=== PATIENT | female | born 1965 | race Caucasian/White ===

== ENCOUNTER 2019-03-19 07:03 | Outpatient (CLI) | payer MEDICARE, MEDICAID ==
--- NOTE | 2019-03-19 08:46 | ULT ---
PELVIC ULTRASOUND: Transabdominal and endovaginal ultrasound of pelvis performed. INDICATION: Pelvic pain. FINDINGS: The patient is status post hysterectomy and right oophorectomy. The left ovary is not identified. S mall bowel gas filled the pelvis and obscured detail. No free fluid identified. IMPRESSION: Post hysterectomy and right oophorectomy. The left ovary is not identified. POS: LILLIANA
== END 2019-03-19 07:04 | disposition home or self-care (01) ==
LOC: BICULT 07:03
PROVIDERS: ATTEND Nurse Practitioner Adult Health
DX: R10.2 Pelvic and perineal pain (principal); Z90.710 Acquired absence of both cervix and uterus; Z90.721 Acquired absence of ovaries, unilateral
CPT/HCPCS: 76856

== ENCOUNTER 2019-04-16 09:55 | Outpatient (CLI) | payer MEDICARE, MEDICAID ==
--- NOTE | 2019-04-16 10:36 | MMO ---
Bilateral MAMMO Bilat Diag [facility]. CLINICAL HISTORY: Patient is 53 years old and is seen for diagnostic exam and pain in the right breast. The patient has the following family history of breast cancer: cousin female. The patient has a history of uterine cancer at age 45. The patient has a history of right Excisional Biopsy - benign. VIEWS: The views performed were: bilateral craniocaudal with tomosynthesis; bilateral mediolateral oblique with tomosynthesis; bilateral mediolateral; and bilateral exaggerated craniocaudal. FILMS COMPARED: The present examination has been compared to prior imaging studies performed at [facility] on 04/22/2012, 06/25/2012, 03/31/2014 and 04/03/2015. MAMMOGRAM FINDINGS: There are scattered fibroglandular densities. Finding 1: There are multiple stable focal asymmetries seen in the left breast. Finding 2: There are stable benign appearing calcifications seen in the left breast. There are no suspicious masses, suspicious calcifications, or new areas of architectural distortion. IMPRESSION: THERE IS NO MAMMOGRAPHIC EVIDENCE OF MALIGNANCY. A ROUTINE FOLLOW-UP MAMMOGRAM IN 1 YEAR IS RECOMMENDED. THE RESULTS OF THIS EXAM WERE SENT TO THE PATIENT. ACR BI-RADS Category 2 - Benign finding MAMMOGRAPHY NOTE: 1. A negative mammogram report should not delay a biopsy if a dominant of clinically suspicious mass is present. 2. Approximately 10% to 15% of breast cancers are not detected by mammography. 3. Adenosis and dense breasts may obscure an underlying neoplasm.
== END 2019-04-16 09:56 | disposition home or self-care (01) ==
LOC: BICMAMMO 09:55
PROVIDERS: ATTEND Nurse Practitioner Adult Health
DX: N64.4 Mastodynia (principal); Z85.42 Personal history of malignant neoplasm of other parts of uterus; Z80.3 Family history of malignant neoplasm of breast; Z91.89 Other specified personal risk factors, not elsewhere classified
CPT/HCPCS: 77066; G0279

== ENCOUNTER 2020-11-20 07:58 | Outpatient (CLI) | payer MEDICARE, MEDICAID ==
--- NOTE | 2020-11-20 08:51 | CT ---
CT ABDOMEN AND PELVIS WITH IV CONTRAST 11/20/2020 CLINICAL INFORMATION: Weight loss. Bloating after eating. Nausea. COMPARISON: 05/03/2019. Technique: Multiple contiguous axial CT images are obtained through the abdomen and pelvis with IV contrast. Cor onal reformatted images are provided. FINDINGS: Lower Chest: Mild dependent bibasilar atelectasis. Vessels: Vascular calcification seen in the abdominal aorta and iliac arteries. Abdomen: Portal vein:Patent Gallbladder: Decompressed. Liver: Few tiny subcentimeter too small to characterize hypodense lesions are again seen in the later al segment left hepatic lobe. Spleen: within normal limits. Pancreas: within normal limits. Adrenals: Suggestion of a 11 mm nodule right adrenal gland. This is unchanged from prior study. Left adrenal gland has a normal CT appearance. Kidneys: within normal limits. Bowel: There is evidence of a bowel malrotation with the loops of small bowel in the right aspect of the abdomen and the colon within the central and left aspect of the abdomen. Loops of small bowel are normal in caliber without evidence of a bowel obstruction. Appendix: The appendix is visualized and normal in caliber. Peritoneum: No ascites or free air; no fluid collection. Mesentery and Retroperitoneum: No enlarged mesenteric or retroperitoneal lymph nodes. Abdominal Wall: Small fat-containing umbilical hernia again present. Pelvis: Reproductive Organs: Evidence of hysterectomy. Bladder: Incompletely distended but otherwise grossly within normal limits. Bones: No suspicious lytic or sclerotic osseous lesions. IMPRESSION: 1. Evidence of a bowel malrotation with loops of small bowel in the right abdomen and the colon seen within the midline and left abdomen. No loops of small bowel are seen within the left abdomen. No bowel obstruction is seen. 2. Right adrenal nodule. Follow-up noncontrast CT abdomen recommended. 3. Hysterectomy. 4. Subcentimeter too small to characterize hypodense lesions left hepatic lobe unchanged in size or a ppearance compared to study in 2019.
[2020-11-20] MEDS ORDERED: Iopamidol 370 76% 100 ML VIAL ONE (09:49)
== END 2020-11-20 07:59 | disposition home or self-care (01) ==
LOC: BICCT 07:58
PROVIDERS: ATTEND Internal Medicine Gastroenterology
DX: R10.13 Epigastric pain (principal); R63.4 Abnormal weight loss; E27.8 Other specified disorders of adrenal gland; K76.9 Liver disease, unspecified; Z90.710 Acquired absence of both cervix and uterus
CPT/HCPCS: 74177; Q9967

== ENCOUNTER 2021-12-30 15:07 | Emergency (ER) | payer MEDICARE, MEDICAID | END 2021-12-30 17:40 | disposition home or self-care (01) | LOC: ERS 15:07 | DX: K02.9 Dental caries, unspecified (principal); E78.5 Hyperlipidemia, unspecified; K21.9 Gastro-esophageal reflux disease without esophagitis; E78.00 Pure hypercholesterolemia, unspecified; J44.9 Chronic obstructive pulmonary disease, unspecified; Z72.0 Tobacco use | CPT/HCPCS: 99282 ==

== ENCOUNTER 2022-02-21 17:26 | Emergency (ER) | payer MEDICARE, MEDICAID ==
[2022-02-21] MEDS ORDERED: HYDROcodone/Acetaminophen 5/325 mg Tablet ONE (17:55)
== END 2022-02-21 18:20 | disposition home or self-care (01) ==
LOC: ERS 17:26
DX: K04.7 Periapical abscess without sinus (principal); K21.9 Gastro-esophageal reflux disease without esophagitis; E78.5 Hyperlipidemia, unspecified; E78.00 Pure hypercholesterolemia, unspecified; J44.9 Chronic obstructive pulmonary disease, unspecified; G47.00 Insomnia, unspecified; F17.200 Nicotine dependence, unspecified, uncomplicated; Z85.828 Personal history of other malignant neoplasm of skin
CPT/HCPCS: 99282